=== PATIENT | female | born 1945 | race Caucasian/White ===

== ENCOUNTER 2018-04-14 11:22 | Day surgery (SDC) | payer OTHER ==
[2013-06-20 16:07] VITALS: BMI 24.1
[2018-04-14] MEDS ORDERED: Lactated Ringer's 1,000 ML IV ONE (12:23)
[2018-04-14] MEDS ORDERED: Etomidate 20 mg/10ml Inj IV ONE (12:27)
[2018-04-14] MEDS ORDERED: Lidocaine Hydrochloride 5 ML INJ ONE ×2 (12:27)
[2018-04-14] MEDS ORDERED: Propofol 10 mg/ml Inj (20 ML) ONE (12:27)
[2018-04-14 13:12] VITALS: TEMP 97; O2SAT 100
[2018-04-14 14:13] VITALS: BP 145/77; PULSE 76; RESP 17
== END 2018-04-14 14:11 | disposition home or self-care (01) ==
LOC: C.ENDO 11:22
PROVIDERS: ATTEND Internal Medicine Gastroenterology
DX: K57.30 Diverticulosis of large intestine without perforation or abscess without bleeding (principal); D50.9 Iron deficiency anemia, unspecified; R10.9 Unspecified abdominal pain; K64.1 Second degree hemorrhoids; K29.70 Gastritis, unspecified, without bleeding; K22.70 Barrett's esophagus without dysplasia
CPT/HCPCS: 43239; 45378; 88305; 88312; 88313; 88342; J2405; J2704; J7120